=== PATIENT | male | born 1985 | race Caucasian/White ===

== ENCOUNTER → 2017-07-28 | Outpatient (CLI) | payer OTHER ==
--- NOTE | 2017-07-28 11:39 | US ---
EXAMINATION TYPE: US scrotum with doppler. Grayscale and color Doppler Duplex imaging performed of mary ellen arreola scrotum. DATE OF EXAM: 07/28/2017 COMPARISON: NONE CLINICAL HISTORY: N50.811 Other specified disorders of male genital. Right scrotal pain without swell ing. EXAM MEASUREMENTS: TESTICLES: Right Testicle: 4.2 x 2.6 x 3.0 cm Left Testicle: 4.0 x 2.4 x 3.1 cm EPIDIDYMIS HEAD: Right Epididymis: 0.9 x 1.1 x 1.3 cm Left Epididymis: 0.8 x 0.9 x 1.1 cm Doppler was performed to assess for testicular vascularity; good bilateral color flow and waveforms a re seen. Right hydrocele is noted medially = 4.8 x 2.7 x 1.1cm. Smaller left hydrocele is noted = 1.9 x 1.1 x 0.9cm. Right epididymal head cyst is imaged = 0.2 x 0.2 x 0.1cm and smaller left epididymal head cyst is see n = 0.2 x 0.2 x 0.2cm Presence of varicoceles: no Small bilateral hydroceles or scrotal fluid collections are this is more prominent on the right side on images saved. Identified. Comparison view shows symmetric blood flow to both testicles without suspicious skin or subcutaneous thickening. IMPRESSION: Small right greater than left scrotal fluid collection or hydroceles noted.
== END | disposition home or self-care (01) ==
LOC: RADUSWWP 10:48
PROVIDERS: ATTEND Internal Medicine
DX: N43.3 Hydrocele, unspecified (principal)
CPT/HCPCS: 76870; 93975